=== PATIENT | female | born 1980 | race Caucasian/White ===

== ENCOUNTER 2018-03-25 04:50 | Emergency (ER) | payer BC ==
[2018-03-25 05:29] LABS: CHLORIDE,CL 103 mmol/L (98-107); SODIUM,NA 139 mmol/L (136-145)
[2018-03-25 05:30] LABS: ACETAMINOPHEN < 2.0 ug/mL
[2018-03-25] MEDS ORDERED: LORazepam 2 MG/ML SDV ONE (05:56)
[2018-03-25] MEDS ORDERED: LORazepam 2 MG/ML SDV IVPUSH ONE (06:01)
[2018-03-25] MEDS ORDERED: Sodium Chloride 0.9% 1,000 ML IV ONE (06:01)
== END 2018-03-25 06:21 | disposition home or self-care (01) ==
LOC: MW.ED 04:50
DX: Z53.21 Procedure and treatment not carried out due to patient leaving prior to being seen by health care provider (principal)
CPT/HCPCS: 36415; 80053; 80305; 81001; 81025; 83540; 83735; 84443; 85025; 87086; 93005; 99284; G0480